=== PATIENT | male | born 1950 | race Caucasian/White ===

== ENCOUNTER 2017-07-23 06:40 | Emergency (ER) | payer OTHER ==
[2017-07-23] VITALS (7 sets, daily range): BP systolic 141–154; BP diastolic 67–85; PULSE 46–56; RESP 14–19; O2SAT 92–100
[~2017-07-23] VITALS: Ht 182.9 cm; Wt 104.5 kg
[~2017-07-23 06:40] MED LIST: ALLO300T29 PO; ASPI81TA2 PO; CLOP75TA14 PO; PLAVIX (*) 75 M75 MG PO; SMV40T PO; SPRN50T PO; TOPR25T PO; ZES20T PO
--- NOTE | 2017-07-23 06:46 | ED.REPORT ---
HPI-Dizziness / Weakness Date of Service Jul 23, 2017 ED Provider: Valdez Hansen MD The pt is a 67 y/o male with hx of HTN and CAD who presents to the ED via EMS complaining of dizziness onset 0430 upon waking. The pt reports he was unsteady on his feet and felt like he kept falling to the right but denies R sided weakness or numbness. Associated symptoms include R sided facial numbness that is gradually resolving, fatigue, trouble hearing due to feeling "stuffed up", diaphoresis, nausea, and generalized weakness. He denies headache, fever, any other new numbness, or tingling, or any other symptoms. Per the pt's son, the pt's speech was thick this morning but that's how it normally is when he is tired and it has been gradually resolving. Nursing Notes Stated Complaint: DIZZINESS Chief Complaint: General Complaint Nursing Notes Reviewed: Yes ([place], meds not reconciled) Allergies: Coded Allergies: No Known Allergies (Verified , 07/23/17) Scheduled Allopurinol-Expunged Drug, Do Not Renew! (Allopurinol-Expunged Drug, Do Not Renew!) 300 Mg Tablet 300 MG PO DAILY Aspirin-Expunged Drug, Do Not Renew! (Aspirin-Expunged Drug, Do Not Renew!) 81 Mg Tab 325 MG PO DAILY Take full 325mg for 1 month or until changed by Dr. Hallman Clopidogrel-Expunged Drug, Do Not Renew! (Plavix-Expunged Drug, Do Not Renew!) 75 Mg Tablet 75 MG PO BID Clopidogrel-Expunged Drug, Do Not Renew! (Plavix-Expunged Drug, Do Not Renew!) 75 Mg Tablet 75 MG PO DAILY Begin January 07 with once daily dose Lisinopril-Expunged Drug, Do Not Renew! (Lisinopril-Expunged Drug, Do Not Renew! ) 20 Mg Tablet 40 MG PO DAILY Metoprolol Suc-Expunged Drug, Do Not Renew! (Metoprolol Suc-Expunged Drug, Do Not Renew!) 25 Mg Tber 12.5 MG PO DAILY Simvastatin-Expunged Drug, Choose New Med! (Simvastatin-Expunged Drug, Choose New Med!) 40 Mg Tablet 80 MG PO HS INPATIENT MAX DOSE 40 MG Spironolactone-Expunged Drug, Do Not Renew! (Spironolactone-Expunged Drug, Do Not Renew!) 50 Mg Tablet 50 MG PO DAILY Scheduled PRN Meclizine (Bonine) 25 Mg Tab.chew 25 MG PO TID PRN PRN VERTIGO General Time Seen by MD: 06:50 Chief Complaint Dizzy Hx Obtained From: Patient, Son Arrived By: Ambulance Onset Occurred: 1 - 4 hours ago Symptom Duration: Since onset Location: : No pain Severity: Current: No pain currently Severity: Maximum: No pain Associated with: Reports: Fatigue, Nausea, Numbness (R sided face ), Weakness Additional Notes: trouble hearing, diaphoresis Pertinent Negative: Pt denies other symptoms Exacerbated by: Change in position, Turn head to right, Any head movement Relieved by: Remaining still Recent Healthcare: No recent doctor visit, No recent hospitalization Similar Sx Previous: No Risk Factors NIH Stroke Scale Level of Consciousness: Alert and responsive (0) Ask Month & Age: Both questions right (0) Open/Close Eyes/Hand Application Design Engineer: Performs both tasks (0) Horizontal EO Movements: None (0) Visual Guan: No visual loss (0) Facial Palsy: Normal symmetry (0) Right Arm Motor Drift (10s): No drift 10 sec (0) Left Arm Motor Drift (10s): No drift 10 sec (0) Right Leg Motor Drift (5s): No drift 5 sec (0) Left Leg Motor Drift (5s): No drift 5 sec (0) Sensation (Arms/Legs/Face): No sensory loss (0) Language Aphasia: No aphasia, normal (0) Dysarthria: No dysarthria, normal (0) (Per family, speech is normally slow and thick ) NIHSS Score: 0 Time NIHSS Performed: 06:55 Date NIHSS Performed: Jul 23, 2017 Past Medical History Past Medical History Coronary artery disease, STEMI in December 2012 Dyspnea NE (2005 & 2012) Kidney stones arthritis Reports: Hyperlipidemia, Hypertension Past Surgical History CABG 2 [place] in 1999 Cardiac stent 2007, 2012 (stenting of the distal obtuse marginal branch and angioplasty in 2012) Reports: Appendectomy, Cholecystectomy Smoking History Former Smoker (cessation in 1997), Never Smoker Social History Alcohol Use: "Social" Drug Use: Denies drug use Ambulatory Status Independent Review of Systems Constitutional: Reports: Fatigue, Weakness - generalized, Denies: Fever Ears / Nose / Throat: Reports: Hearing loss bilateral GI: Reports: Nausea Skin: Reports Diaphoresis Neurologic: Reports: Dizziness, Numbness (R sided face ), Problem walking, Slurred speech, Denies: Headache Complete sys rev & neg: except as marked. Physical Exam Initial Vital Signs Vital Signs (First) Date Time Temp Pulse Resp B/P Pulse Ox O2 Delivery O2 Flow Rate FiO2 07/23/17 06:50 36.3 50 19 151/85 92 Room Air 07/23/17 06:56 2 Initial VS: Reviewed, Unavailable (no vitals on the chart) Neck: Full range of motion Skin: Warm, Dry, No cyanosis General/Constitutional: Awake mildly drowsy but promethazine was given via EMS Head / Eyes: Atraumatic, Normocephalic, PERRL, EOMI, No nystagmus Respiratory / Chest: Atraumatic, Breath sounds NL, Breath sounds = bilat, No respiratory distress Cardiovascular: Heart rate NL, Regular rhythm, Heart sounds NL Neurologic: CN II - XII intact slightly slow speech, with thick accent but family says it is normal, and it is post medication. No facial droop ENT: Airway patent, Pharynx NL Lower Extremity / Pelvis / MS: Atraumatic, Neurologic intact, Vascular intact Upper Extremity / MS: Atraumatic, Neurologic intact, Vascular intact Interpretation & Diagnostics MRI STROKE PROTOCOL Pre- and post-contrast brain MRI, non-contrast brain MR angiogram, pre- and postcontrast neck MR angiogram IMPRESSION: BRAIN MRI: 1. No acute intracranial abnormalities. 2. Mild cerebral volume loss. 3. Multiple foci of T2/FLAIR hyperintensity in subcortical and periventricular white matter, compatible with chronic microvascular ischemic changes. A differential diagnostic possibility is a demounting process such as multiple sclerosis. Recommend clinical correlation. 4. Mild right maxillary sinus disease. BRAIN MR ANGIOGRAM: No significant stenosis or occlusion in anterior or posterior circulations. NECK MR ANGIOGRAM: 1. Normal carotid arteries bilaterally. 2. Normal vertebral arteries bilaterally. 3. Multilevel degenerative disc disease with moderate central canal stenosis in cervical spine. The estimate of stenosis included in the report of the imaging study was calculated using the NASCET method Dictated by: Sujey Hyde M.D. on 07/23/2017 at 13:20 Lab Results Interpretation Result Diagram: 07/23/17 0650 07/23/17 0650 Test 07/23/17 06:50 07/23/17 11:08 White Blood Count 11.5th/mm3 (3.8-10.1) Red Blood Count 5.65mil/mm3 (4.40-5.80) Hemoglobin 16.9g/dL (13.8-17.2) Hematocrit 48.6% (41.0-50.0) Mean Corpuscular Volume 86.0fL (81-100) Mean Corpuscular Hemoglobin 29.9pg (27.0-35.0) Mean Corpuscular Hemoglobin Concent 34.8% (32.0-37.0) Red Cell Distribution Width 13.7% (12.3-15.4) Platelet Count 311bil/L (150-400) Neutrophils (%) (Auto) 30.9% (40-74) Lymphocytes (%) (Auto) 52.3% (14-46) Monocytes (%) (Auto) 13.9% (4-12) Eosinophils (%) (Auto) 2.2% (0-5) Basophils (%) (Auto) 0.5% (0-3) Prothrombin Time 10.1sec (8.1-12.5) Prothromb Time International Ratio 0.95ratio Activated Partial Thromboplast Time 23.1sec (22.8-33.0) Sodium Level 141mEq/L (134-144) Potassium Level 4.3mEq/L (3.5-5.2) Chloride Level 103mEq/L (97-108) Carbon Dioxide Level 20mmol/L (18-29) Blood Urea Nitrogen 18mg/dL (8-27) Creatinine 0.99mg/dL (0.76-1.27) Estimat Glomerular Filtration Rate 80mL/min (>59) Glucose Level 136mg/dL (60-99) Calcium Level 9.0mg/dL (8.5-10.1) Total Bilirubin 0.4mg/dL (0.0-1.2) Aspartate Amino Transf (AST/SGOT) 30U/L (0-50) Alanine Aminotransferase (ALT/SGPT) 27U/L (0-44) Alkaline Phosphatase 93U/L (25-160) Troponin T 0.010ug/L (0.0-0.011) Total Protein 7.3g/dL (6.4-8.4) Albumin 4.5g/dL (3.4-5.0) Urine Color Yellow (YELLOW) Urine Appearance Clear (CLEAR,HAZY) Urine pH 6.0 (5.0-8.0) Urine Specific [place] 1.013 (1.003-1.035) Urine Protein Negativemg/dL (NEG,TRACE) Urine Glucose (UA) Negativemg/dL (NEGATIVE) Urine Ketones Negativemg/dL (NEGATIVE) Urine Occult Blood Negative (NEGATIVE) Urine Nitrite Negative (NEGATIVE) Urine Bilirubin Negative (NEGATIVE) Urine Urobilinogen Normalmg/dL (NORMAL) Urine Leukocyte Esterase Negative (NEGATIVE) Urine RBC 0-2/hpf (0-2) Urine WBC 0-5/hpf (0-5) Urine Epithelial Cells Few/hpf (NONE-MOD) Urine Crystals None seen (NONE SEEN) Urine Bacteria None/hpf (NONE-FEW) Urine Hyaline Casts None/lpf (NONE) Urine Granular Casts None seen (NONE SEEN) Urine Waxy Casts None seen (NONE SEEN) Urine Red Blood Cell Casts None seen (NONE SEEN) Urine White Blood Cell Casts None seen (NONE SEEN) Urine Mucus None seen (None Seen) Urine Trichomonas None seen (NONE SEEN) Urine Yeast None (NONE SEEN) Urinalysis Comment None Urine Culture Reflexed Not indicated Lab Results Interpretation: CBC nonspecific leukocytosis CMP normal ECG Interpretation ECG Interpretation: sinus bradycardia with rate of 51 Time: 07:15 Interpreted by: ED physician X-Ray Chest Interpretation Chest Xray Interpretation: IMPRESSION: Reduced inspiratory volume, prior CABG, chronic mild interstitial prominence but no pneumonia or neoplasm is found. Dictated by: Sam Tena M.D. on 07/23/2017 at 8:15 View: Portable, 1 view Interpretation / Wet Read by: Interpret - Radiologist CT Head Interpretation CONCLUSION: No acute abnormality. Chronic microvascular ischemic disease and volume loss. Study: Head CT no contrast Interpretation / Wet Read by: Interpret - Radiologist Re-Eval/Medical Decision Med Decision/Clinical Course This is a 67-year-old male reports waking up this morning and having difficulty in relating with wanting a fall to the right with severe dizziness and nausea. Sitting up and turning symptoms worse. He also has a little bit of right-sided facial numbness and decreased hearing. He denies prior history of similar symptoms but is very concerned about stroke. Denies previous history of stroke, denies trauma. 4 symptoms are somewhat improved. He received Phenergan and Benadryl by EMS and this is slightly drowsy, but he thinks his speech is normal with the family agrees. His NIH stroke scale testing 0 - he is therefore not a candidate for TPA, in addition the fact that his diagnosis is uncertain, while stroke is in the differential, but not definite.. He has intact sensation the right side of his face, and no focal motor deficits are having, he does not have nystagmus, but gets profound symptoms when just sitting up. He does describe some decreased hearing on the right, but has a normal external ears have no evidence obstruction. Workup was pursued and a head CT was negative, blood work was normal. MRI was performed and revealed no clear acute disease, no stroke. Questionable area of mari-white interface either radiology notes, of uncertain significance. Given the patient does describe hearing loss, some empiric steroids are being prescribed, follow-up with ENT for further evaluation. Patient however is much improved following the meclizine and is now ambulatory and functioning. Is being discharged on a course of meclizine as well. Routine return precautions reviewed. Patient's discharge and looks very good condition. Source of Hx: Old records Re-Evaluation/Progress #1: Time of Eval: 09:03 Patient Status: Mild relief Re-Evaluation/Progress Note: Pt informed of plan for additional imaging. The pt is waiting for his MRI scan Re-Evaluation/Progress #2: Time of Eval: 13:49 Re-Evaluation/Progress Note: Pt rechecked. Informed pt of diagnosis and plan for discharge. The pt understands and agrees with plan for discharge. F/U instructions and RTER warnings given. All questions addressed at this time. Differential Diagnosis: Negative: Acute coronary syndrome, Anemia, Carbon monoxide poisoning, Cerebrovascular accident, Dehydration, Electrolyte disorder , Hyperventilation syndrome, Periodic paralysis, Pulmonary embolus, Rheumatologic disease, Sepsis, Subarachnoid hemorrhage Counseled Regarding: Diagnosis, Lab results, Need for follow-up, When/why to return to ED Patient Discharge & Departure Impression: Primary Impression: Vertigo Additional Impression: Hearing loss Hearing loss type: unspecified Laterality: right Qualified Code: H91.91 - Unspecified hearing loss, right ear Disposition: Home Discharge Condition All VS Reviewed: Yes Condition: Stable Additional Instructions: 1. There were no signs of a stroke on CT scan or MRI. 2. Take it very easy, symptoms are expected to improve with time 3. No driving or operating machinery until symptoms have resolved for at least 24 hours. 4. I do recommend following up with ear nose and throat for recheck of a hearing loss - call their office on Tuesday. 5. Meclizine 25 mg 3 times a day for the next few days, then as needed up to 3 times a day for the vertigo. Moves slowly, turning her head to the right usually provokes the symptoms worse. 6. He received a dose of dexamethasone today and might help with the hearing loss and symptoms, take her remaining dose of dexamethasone tomorrow. Simple empty syringe some juice and drink. 7. She feel unstable or unsafe at home, or abnormal worsening symptoms, return to the emergency department. Referrals: OTHER,PHYSICIAN (PCP) Harris Muir MD Scribe Attestation Portions of this note were transcribed by Isaías Priest and Jaswinder Haro. I , Dr. Valdez Hansen personally performed the history, physical exam and medical decision-making; I reviewed and confirmed the accuracy of the information in the transcribed note. Signed by: Isaías Priest and Rory Aguiar, 07/23/17. Harris Muir MD; OTHER,PHYSICIAN Valdez Hansen MD Jul 23, 2017 06:46 Isaías Priest Jul 23, 2017 06:58 JASWINDER HARO Jul 23, 2017 07:39
[2017-07-23 07:42] LABS: BASOPHILS % (AUTO) 0.5 % (0-3); EOSINOPHILS % (AUTO) 2.2 % (0-5); MONOCYTES % (AUTO) 13.9 % (4-12); Mean Corpuscular Hemoglobin 29.9 pg (27.0-35.0); NEUTROPHILS % (AUTO) 30.9 % (40-74); Platelet Count 311 bil/L (150-400)
[2017-07-23 07:52] LABS: TROPONIN T 0.01 ug/L (0.0-0.011)
[2017-07-23 08:06] LABS: INR 0.95 ratio
--- NOTE | 2017-07-23 08:17 | DRSVH ---
PROCEDURE: X-RAY CHEST ONE VIEW, PORTABLE ([id number]) INDICATIONS: CVA TECHNIQUE: One view of the chest was acquired. COMPARISON: [facility], [facility], XR CHEST 2VW, 12[facility]16[facility]2015, 9[facility]31[facility] 15[facility]47. FINDINGS: Surgical changes and devices: Sternotomy wires, presumed prior CABG. Lungs and pleura: No pleural effusions or pneumothorax. Lungs are abnormal with a chronic mild inte rstitial prominence previously present. Mediastinum: Mediastinal contours appear normal. Heart size is normal. Bones and chest wall: No suspicious bony lesions. Overlying soft tissues appear unremarkable. IMPRESSION: Reduced inspiratory volume, prior CABG, chronic mild interstitial prominence but no pneum onia or neoplasm is found. Dictated by: Sam Tena M.D. on 07/23/2017 at 8:15 Approved by: Sam Tena M.D. on 07/23/2017 at 8:16
--- NOTE | 2017-07-23 08:19 | DRSVH ---
PROCEDURE: CT BRAIN WITHOUT CONTRAST ([id number]) INDICATIONS: Stroke TECHNIQUE: Noncontrast 4.5 mm thick angled axial sections acquired from the foramen magnum to the vertex, with c oronal reformats. COMPARISON: None. FINDINGS: Image quality: Excellent. CSF spaces: Basal cisterns are patent. No extra-axial fluid collections. The ventricles are symmet amada in size and shape. Brain: No intracranial bleeds or masses. There is cerebral volume loss for age, with resultant vent ricular and sulcal prominence. There are periventricular and deep white matter chronic small vessel ischemic changes. There is intracranial internal carotid artery atherosclerosis. Skull and face: Calvarium and visualized facial bones appear intact, without suspicious lesions. Sinuses: Visualized sinuses and mastoids are clear. IMPRESSION: Chronic mild/moderate microvascular atherosclerotic change in the deep white matter each hemisphere but no acute disease is found. Dictated by: Sam Tena M.D. on 07/23/2017 at 8:16 Approved by: Sam Tena M.D. on 07/23/2017 at 8:17
[2017-07-23 11:23] LABS: APPEARANCE,URINE CLEAR (CLEAR,HAZY); COLOR,URINE YELLOW (YELLOW); OCCULT BLOOD,URINE NEGATIVE (NEGATIVE); UROBILINOGEN,URINE NORMAL (NORMAL)
--- NOTE | 2017-07-23 13:29 | DRSVH ---
PROCEDURE: MRI STROKE PROTOCOL ([id number]) Pre- and post-contrast brain MRI, non-contrast brain MR angiogram, pre- and postcontrast neck MR daniel ogram INDICATIONS: Vertigo, R Facial numbness TECHNIQUE: Brain: Noncontrast axial T1 spin echo, axial T2 fast spin echo, sagittal and axial FLAIR, coronal T2 fast spin echo, axial gradient echo, axial diffusion and ADC through the brain. After the administr ation of contrast, axial 3D VIBE of the cranial vasculature and brain. Brain MRA: Non-contrast 3-D time of flight MR angiogram, with multiple yfheprw-owujyvrmb-fawwbtaquw (MIP) reformats performed. Neck MRA: Axial and sagittal TruFISP through the neck. Coronal dynamic MR angiogram during administ ration of contrast in the arterial and venous phases, with 3-dimenstional dynqebe-xxrpamjly-dphyeqnbw n (MIP) reformats constructed from subtraction images. COMPARISON: None. FINDINGS: Image quality: Excellent. BRAIN: CSF spaces: Ventricles are normal in size and shape. Basal cisterns are patent. No extra-axial flu id collections. Brain: No intracranial bleeds or mass effects. There is mild cerebral volume loss. There are multipl e foci of T2/FLAIR hyperintensity in subcortical and periventricular white matter. Diffusion weighte d images show no acute ischemic insults. Brainstem appears normal. Normal intravascular flow voids are present. No abnormal intracranial enhancement. Skull and face: Calvarial marrow signal is normal. Orbits appear normal. Sinuses: Mastoids are clear. There is mild right maxillary sinus mucosal thickening and a small air-f luid level. BRAIN MR ANGIOGRAM: Anterior circulation: Intracranial internal carotid arteries are normal in size and enhancement. Th e flow within the paired anterior cerebral arteries is normal and symmetric. The flow within the mid dle cerebral arteries is normal and symmetric. The anterior communicating artery is seen. No stenos es, occlusions, or aneurysms. Posterior circulation: The visualized portions of the vertebral arteries demonstrate normal caliber, and join to form a normal appearing basilar artery. The flow within the posterior cerebral arteries is normal and symmetric. No stenoses, occlusions, or aneurysms. NECK MR ANGIOGRAM: Carotids: Great vessels demonstrate a conventional anatomy as they arise from the aortic arch. The origins of the common carotid arteries appear patent. The calibers and courses of both common caroti d arteries are normal. The bifurcation regions appear normal bilaterally. The internal carotid elliott zach demonstrate normal course and caliber. Posterior circulation: The origins of the vertebral arteries appear patent. More superior portions of both vertebral arteries demonstrate normal course and caliber, and join to form a normal appearing basilar artery. Miscellaneous: Subclavian arteries appear patent. Pre-contrast images through the neck show no soft tissue abnormalities. IMPRESSION: BRAIN MRI: 1. No acute intracranial abnormalities. 2. Mild cerebral volume loss. 3. Multiple foci of T2/FLAIR hyperintensity in subcortical and periventricular white matter, compatib le with chronic microvascular ischemic changes. A differential diagnostic possibility is a demounting process such as multiple sclerosis. Recommend clinical correlation. 4. Mild right maxillary sinus disease. BRAIN MR ANGIOGRAM: No significant stenosis or occlusion in anterior or posterior circulations. NECK MR ANGIOGRAM: 1. Normal carotid arteries bilaterally. 2. Normal vertebral arteries bilaterally. 3. Multilevel degenerative disc disease with moderate central canal stenosis in cervical spine. The estimate of stenosis included in the report of the imaging study was calculated using the NASCET method Dictated by: Sujey Hyde M.D. on 07/23/2017 at 13:20 Approved by: Sujey Hyde M.D. on 07/23/2017 at 13:27
[2017-07-23] MEDS ORDERED: Dexamethasone 20 mg/2 mL Oral Solution PO ONE (14:00)
[2017-07-23] MEDS ORDERED: MECL-114 PO (14:06)
== END 2017-07-23 14:29 | disposition home or self-care (01) ==
LOC: SED 06:40
DX: R42 Dizziness and giddiness (principal); H91.91 Unspecified hearing loss, right ear; I10 Essential (primary) hypertension; I25.10 Atherosclerotic heart disease of native coronary artery without angina pectoris; I25.2 Old myocardial infarction; E78.5 Hyperlipidemia, unspecified; Z95.1 Presence of aortocoronary bypass graft; Z87.891 Personal history of nicotine dependence; Z79.82 Long term (current) use of aspirin
CPT/HCPCS: 36415; 70450; 70549; 70553; 71010; 80053; 81000; 84484; 85025; 85610; 85730; 92610; 93005; 99285; A9585